=== PATIENT | female | born 1990 | race Asian ===

== ENCOUNTER 2017-05-10 21:56 | Emergency (ER) | payer OTHER ==
[~2017-05-10] VITALS: Ht 149.9 cm; Wt 39.5 kg
[2017-05-10 21:59] VITALS: BP 124/73
[2017-05-10] MEDS ORDERED: PERTUSS(ACELL),DIPH,TET VAC/PF 0.5 ML VIAL IM ONE (22:30)
== END 2017-05-10 22:41 | disposition home or self-care (01) ==
LOC: EMS 22:01
DX: S01.85XA Open bite of other part of head, initial encounter (principal); S31.825A Open bite of left buttock, initial encounter; W54.0XXA Bitten by dog, initial encounter; Y93.89 Activity, other specified; Y92.89 Other specified places as the place of occurrence of the external cause; Y99.8 Other external cause status
CPT/HCPCS: 90471; 90715; 99283